=== PATIENT | female | born 1990 | race Caucasian/White ===

== ENCOUNTER 2016-12-14 08:25 | Emergency (ER) | payer OTHER ==
[2016-12-14 09:31] LABS: BILIRUBIN NEGATIVE (NEGATIVE); BLOOD 3+ Ery/uL (NEGATIVE); CLARITY CLEAR (CLEAR); COLOR YELLOW (YELLOW); GLUCOSE (U) NORMAL (NORMAL); KETONE (U) NEGATIVE (NEGATIVE); LEUKOCYTES NEGATIVE Leu/uL (NEGATIVE); NITRITE NEGATIVE (NEGATIVE); PROTEIN NEGATIVE (NEGATIVE); SPECIFIC GRAVITY 1.015 (1.001-1.030); UROBILINOGEN 0.2 mg/dL (0.2-1.0)
[2016-12-14 09:39] LABS: HCT 41.7 % (37.0-47.0); MCH 29.4 pg (25.0-31.0); MCHC 33.6 g/dL (32.0-36.0); MCV 87.6 fL (78.0-100.0); PLT 308 K/uL (150-400); RBC 4.76 M/uL (4.20-5.40); WBC 9.8 K/uL (4.0-10.5)
[2016-12-14 09:42] LABS: BACTERIA 1+; URINARY WBC RARE
[2016-12-14 10:04] LABS: ALBUMIN 4.7 g/dL (3.5-5.0); BILIRUBIN - TOTAL 0.3 mg/dL (0.1-1.0); CREATININE 0.9 mg/dL (0.5-1.0); GLOBULIN (CALCULATION) 3.3 g/dL (2.2-4.2); POTASSIUM 3.7 mmol/L (3.5-5.1)
== END 2016-12-14 10:55 | disposition home or self-care (01) ==
LOC: FER 08:25
PROVIDERS: Emergency Medicine
DX: R10.9 Unspecified abdominal pain (principal); R11.2 Nausea with vomiting, unspecified; Z90.49 Acquired absence of other specified parts of digestive tract; Z87.19 Personal history of other diseases of the digestive system; Z87.442 Personal history of urinary calculi
CPT/HCPCS: 36415; 80053; 81001; 83690; 85025; J1170; J1885; J2405

== ENCOUNTER 2021-09-06 08:31 | Emergency (ER) | payer OTHER ==
[~2021-09-06 08:31] MED LIST: BELLADONNA ALK PR; BENAZEPRIL HCL20 MG PO; BUSPAR5 MG PO; CELEXA20 MG PO; DIAZEPAM 5MG TAB5 MG VG; ELAVIL50 MG PO; EMERON; LASIX20 MG PO; LISINOPRIL20 MG PO; MACROBID100 MG PO; MAGOX 400400 MG PO; METRONIDAZOLE500 MG PO; MINIPRES1 MG PO; MORPHINE SULFATE5 MG PO; MOVANTIK25 MG PO; NEURONTIN300 MG PO; NORCO 5-325 TA1 EACH PO; NORCO 7.5-3251 EACH PO; PERCOCET 5-3251 EACH PO; PERCOCET 7.5-31 EACH PO; PHEN PR; PRENATAL FORMU1 EACH PO; PYRIDIUM200 MG PO; SINGULAIR10 MG PO; UROCIT-K10 MEQ PO; VITAMIN D350000 UNIT PO; ZANAFLEX4 MG PO; ZOFRAN4 MG PO; ZOFRAN4 MG SL
[2021-09-06 08:54] LABS: COLOR ORANGE (YELLOW)
[2021-09-06 08:57] LABS: CLARITY CLEAR (CLEAR)
[2021-09-06 08:59] LABS: BACTERIA TRACE; URINARY RBC RARE
[2021-09-06 09:33] LABS: BASOPHIL 0.3 % (0-2); EOSINOPHIL 1.2 % (0-5); HCT 40.7 % (37.0-47.0); HGB 13.9 g/dl (12.5-16.0); LYMPHOCYTE 20.7 % (15-48); MCH 31.1 pg (25.0-31.0); MCHC 34.2 g/dL (32.0-36.0); MCV 91.1 fL (78.0-100.0); MPV 8.8 fL (6.0-9.5); NEUTROPHIL 72.2 % (41-80); NRBC 0; PLT 291 K/uL (150-400); RBC 4.47 M/uL (4.20-5.40); RDW 12.8 % (11.5-14.0); WBC 11.6 K/uL (4.0-10.5)
[2021-09-06 09:58] LABS: BUN/CREAT RATIO (CALC) 16.9 RATIO; CREATININE 0.77 mg/dL (0.51-0.95)
== END 2021-09-06 10:13 | disposition home or self-care (01) ==
LOC: FER 08:31
PROVIDERS: Emergency Medicine
DX: N39.0 Urinary tract infection, site not specified (principal); F17.200 Nicotine dependence, unspecified, uncomplicated
CPT/HCPCS: 36415; 80048; 81001; 85025